=== PATIENT | female | born 1985 | race Caucasian/White ===

== ENCOUNTER 2017-03-19 11:05 | Inpatient (IN) | payer MEDICAID ==
[~2017-03-19] VITALS: Ht 152.4 cm; Wt 57.0 kg
[~2017-03-19 11:05] MED LIST: ACET1TAB40 PO; AZIT250T94 PO; IBUP-1542 PO; IBUP-40; TRAM50TA2 PO
[2017-03-19 12:13] VITALS: BP 99/63; PULSE 93
[2017-03-19] MEDS ORDERED: PRENAT PO (12:14)
[2017-03-19 12:41] LABS: ADD UMIC YES; UR ASCORBIC ACID 40 mg/dL (NEGATIVE); UR BACTERIA FEW /HPF (NONE SEEN); UR BILIRUBIN (Dip) NEGATIVE (NEGATIVE); UR BLOOD (Dip) NEGATIVE (NEGATIVE); UR CLARITY SLIGHTLY CLOUDY (CLEAR); UR COLOR YELLOW (YELLOW); UR GLUCOSE (Dip) NEGATIVE (NEGATIVE); UR KETONES (Dip) TRACE mg/dL (NEGATIVE); UR LEUKOCYTE ESTERASE (Dip) TRACE Leu/ul (NEGATIVE); UR MUCUS FEW /HPF (NONE SEEN); UR NITRITE (Dip) NEGATIVE (NEGATIVE); UR RBC 2 /HPF (0-5); UR SPECIFIC GRAVITY (Dip) 1.018 (1.003-1.030); UR SQUAMOUS EPITHELIAL CELL FEW /HPF (FEW); UR TOTAL PROTEIN (Dip) NEGATIVE (NEGATIVE); UR UROBILINOGEN (Dip) NEGATIVE (NEGATIVE)
--- NOTE | 2017-03-19 12:53 | RADRPT ---
PROCEDURE: OB ultrasound for biophysical profile CLINICAL INDICATION: labor TECHNIQUE: Multiple sonographic images of the pelvis were obtained. Transabdominal view of the gr avid uterus are available for review. The images were reviewed on a PACS workstation. COMPARISON: OB ultrasound 01/12/2017 FINDINGS: breathing movement = 2/2 tone = 2/2 motion = 2/2 RACHEL = 2/2 RACHEL = 18.0 cm Single live intrauterine with cardiac activity. heart rate equals 161 beats p er minute. Presentation is cephalic. The placenta is anterior. IMPRESSION: 1. Single viable intrauterine gestation. 2. Biophysical profile = 8/8. 3. RACHEL = 18.0 cm. RPTAT: KK .Pete Jerez MD, MD Date Time Electronically viewed and signed by .Pete Jerez MD, MD on 03/19/2017 12:53 .B/
[2017-03-19] MEDS ORDERED: TERBUTALINE 1 MG/ML INJ SC ONE ×2 (14:00→16:30)
[2017-03-19] MEDS: LACTATED RINGER'S 1,000 ML IV SCH ×2 (14:28→22:15)
[2017-03-19] MEDS ORDERED: BETAMET NA PHOS/AC(6 MG/ML) 5ML INJ IM ONE (16:30)
--- NOTE | 2017-03-19 16:54 | RADRPT ---
PROCEDURE: CERVICAL LENGTH ULTRASOUND CLINICAL INDICATION: labor at 31 weeks gestational age. TECHNIQUE: Trans-vaginal imaging of the cervical canal was performed utilizing tipton-scale imaging. Sagittal and transverse images were obtained. The images were reviewed on a PACS workstation. COMPARISON: None. FINDINGS: There is no placenta previa. The cervix is closed with a length of 4.1 cm. IMPRESSION: 1. Cervical length is 4.1 cm. RPTAT: QQ .Soham Graham MD, MD Date Time Electronically viewed and signed by .Soham Graham MD, MD on 03/19/2017 16:53 .R/
[2017-03-19 17:45] LABS: BASOPHILS % 0.2 % (0.0-2.0); EOSINOPHILS % 0.3 % (0.0-7.0); HEMATOCRIT 33.1 % (37.0-47.0); HEMOGLOBIN 11.5 g/dl (12.0-16.0); LYMPHOCYTES # 2.4 10^3/ul (0.8-2.9); LYMPHOCYTES % 24.9 % (15.0-51.0); MEAN CORPUSCULAR HGB CONC 34.7 g/dl (32.0-37.0); MEAN CORPUSCULAR VOLUME 92.2 fl (82.0-101.0); MEAN PLATELET VOLUME 9.1 fl (7.4-10.4); MONOCYTE # 0.6 10^3/ul (0.3-0.9); MONOCYTES % 6.3 % (0.0-11.0); NEUTROPHIL # 6.3 10^3/ul (1.6-7.5); NEUTROPHILS % 66.9 % (39.0-77.0); PLATELET COUNT 211 10^3/UL (140-415); RED BLOOD COUNT 3.59 10^6/ul (4.20-5.40); WHITE BLOOD COUNT 9.4 10^3/ul (4.8-10.8)
[2017-03-19 18:07] LABS: ALBUMIN 3.1 g/dl (3.3-4.9); ALBUMIN/GLOBULIN RATIO 0.88; BILIRUBIN,INDIRECT 0.1 mg/dl (0-1.1); BILIRUBIN,TOTAL 0.1 mg/dl (0.2-1.3); CALCIUM 8.6 mg/dl (8.4-10.2); CREATININE 0.47 mg/dl (0.44-1.00); TOTAL PROTEIN 6.6 g/dl (6.1-8.1)
[2017-03-19 18:17] LABS: POTASSIUM 2.8 mmol/L (3.5-5.1)
--- NOTE | 2017-03-19 18:24 | HP ---
Date/Time of Note Date/Time of Note DATE: 03/19/17 TIME: 18:20 OB - History Hx of Present Free Text/Dictation Seen on day of admission in the clinic and noticed to have uterine contractions during abdominal exam and 17 for evaluation. Patient was noticed to have regular uterine contractions frequency of which decreased with subcutaneous terbutaline however patient continued to have uterine contractions Chief Complaint: Patient feels tightening of her abdomen Last Menstrual Period: Aug 20, 2016 Estimated Due Date: May 18, 2017 : 5 Para: 3 Therapeutic : 1 Ultrasounds: Normal mid trimester US Obstetrical Complications: None Medical Complications: None Past Family/Social History * Past Medical, Surgical, Family and Obstetric Histories reviewed from chart. Blood Type: O+ Rubella: immune RPR/VDRL: Negative GBS Status: Unknown HBsAG: Negative OB Admission Exam Vital Signs Vital Signs Vital Signs Date Time Temp Pulse Resp B/P Pulse Ox O2 Delivery O2 Flow Rate FiO2 03/19/17 12:13 98.1 93 99/63 Physical Exam HEENT: WNL Heart: Rhythm Normal Lungs: Clear, Equal Abdomen: WNL Extremities: Normal Reflexes: Normal Cervical Dilatation: None Effacement: 0% Station: -3 Membranes: Intact Heart Rate: 140's Accelerations: Accelerations Present Decelerations: No Decelerations Varibility: Moderate Contractions on Admission: 6-10 Minutes Apart Date/Time Contractions Began: ? Frequency of Contractions: ? Duration: ? Last 72 hours Lab Results CBC & BMP 03/19/17 17:24 Liver Function Test 03/19/17 17:24 Alanine Aminotransferase (ALT/SGPT) 28 Albumin 3.1 L Alkaline Phosphatase 108 Aspartate Amino Transf (AST/SGOT) 21 Direct Bilirubin 0.00 Total Protein 6.6 OB Assessment/Plan Other Assessment: uterine contractions at 31+ weeks Other plan: Will start on p.o. nifedipine3 Cervical length is over 4 cm FREYA JENSEN MD Mar 19, 2017 18:24
[2017-03-19] MEDS ORDERED: LACTATED RINGER'S 1,000 ML IV SCH (18:26)
[2017-03-19] MEDS ORDERED: POTASSIUM CHLORIDE (SR) 20 MEQ TAB PO STA (18:44)
[2017-03-19] MEDS: NIFEdipine 10 MG CAP PO SCH (19:47)
[2017-03-20] MEDS: NIFEdipine 10 MG CAP PO SCH ×4 (01:04→17:16)
[2017-03-20] MEDS: LACTATED RINGER'S 1,000 ML IV SCH ×2 (06:05→13:38)
[2017-03-20 07:35] LABS: ALBUMIN 3.2 g/dl (3.3-4.9); ALBUMIN/GLOBULIN RATIO 0.96; BILIRUBIN,INDIRECT 0.3 mg/dl (0-1.1); BILIRUBIN,TOTAL 0.3 mg/dl (0.2-1.3); CALCIUM 9.1 mg/dl (8.4-10.2); CREATININE 0.42 mg/dl (0.44-1.00); POTASSIUM 3.8 mmol/L (3.5-5.1); TOTAL PROTEIN 6.5 g/dl (6.1-8.1)
--- NOTE | 2017-03-20 13:57 | DS ---
Date/Time of Note Date/Time of Note DATE: 03/20/17 TIME: 13:56 Obstetrical Discharge Record Final Diagnosis Final Diagnosis: not delivered Other Final Diagnosis Persistent uterine contractions and labor Complications Labor Tocolytics: Terbutaline, Other (Nifedipine) Condition on Discharge Physical Assessment Last Vitals: See nurse's note Voiding: Yes Bowel Movement: Yes Breast: Soft, non-tender, Filling Fundus: Other () Abdomen and Incision: Soft bowel sounds positive Abdomen is gravid Episiotomy: Not applicable Calf Tenderness: No Patient Condition: Good FREYA JENSEN MD Mar 20, 2017 13:57
--- NOTE | 2017-03-20 13:58 | QN ---
Documentation Comment Patient has minimal complaint of uterine contractions On electronic monitoring minimal uterine contractions twice or 3 times an hour seen We will discharge home on p.o. nifedipine Placed on bed and pelvic rest until delivery FREYA JENSEN MD Mar 20, 2017 13:58
--- NOTE | 2017-03-20 13:59 | PD.PPDC ---
[employer] ATTENDANT Discharge Instruction Provider Information Physician Information 32-year-old female admitted with uterine contractions not had cessation of uterine contractions using terbutaline and nifedipine Diagnosis Final Diagnosis: Status post contractions Condition Patient Condition: Good Diet Diet: Resume Regular Diet Activity/Restrictions Activity: Bedrest May Shower Restrictions: No Exercising No Lifting Nothing in the Vagina Follow-up Follow-up with Physician: 4, 5, Day/Days (In clinic) Return to clinic for [employer] Instructions: Worsening abdominal pain Excessive Vaginal Bleeding FREYA JENSEN MD Mar 20, 2017 13:59
[2017-03-20] MEDS ORDERED: NIFE10CA19 PO (14:00)
[2017-03-20] MEDS ORDERED: BETAMET NA PHOS/AC(6 MG/ML) 5ML INJ IM ONE (17:00)
[2017-03-23 12:17] LABS: TB-NIL 0.24 IU/mL
== END 2017-03-20 17:45 | disposition home or self-care (01) | DRG 780 ==
LOC: OBT 11:05 → L-D 11:07 → OBG 18:00 → OBT 18:00
PROVIDERS: ADMIT Obstetrics & Gynecology; ATTEND Obstetrics & Gynecology
DX: O47.03 False labor before 37 completed weeks of gestation, third trimester (principal); Z3A.31 31 weeks gestation of pregnancy
CPT/HCPCS: 36415; 76817; 76818; 80053; 81001; 85025; 86480; 96360; 96361; 96372; G0463; J0702; J3105; J7120

== ENCOUNTER → 2017-03-25 | Outpatient (CLI) | payer MEDICAID ==
[~2017-03-25] MED LIST changes: -IBUP-1542 PO; -IBUP-40; +NIFE10CA19 PO; +PRENAT PO; -TRAM50TA2 PO
--- NOTE | 2017-03-25 16:26 | RADRPT ---
PROCEDURE: XR Chest. CLINICAL INDICATION: Positive PPD. TECHNIQUE: Single frontal view. COMPARISON: None. FINDINGS: The lungs are clear. The heart size is normal. There is no pleural effusion. There is no pneumothorax. IMPRESSION: 1. No evidence of active tuberculosis. 2. Normal chest radiograph. RPTAT: QQ .Soham Graham MD, MD Date Time Electronically viewed and signed by .Soham Graham MD, on 03/25/2017 16:23 .R/
== END | disposition home or self-care (01) ==
LOC: RAD 14:38
PROVIDERS: ATTEND Emergency Medicine
DX: R76.11 Nonspecific reaction to tuberculin skin test without active tuberculosis (principal)
CPT/HCPCS: 71010

== ENCOUNTER 2019-04-19 21:57 | Emergency (ER) | payer MEDICAID ==
[~2019-04-19] VITALS: Ht 152.4 cm; Wt 54.2 kg
[~2019-04-19 21:57] MED LIST changes: +ACET325T33 PO; +AMOX500C2 PO; +AZIT250T PO; -AZIT250T94 PO; +CEPH-443 PO; +D-ME473S2 PO; +FLUT9.9S NASAL; +NIFE10CA PO; -NIFE10CA19 PO
[2019-04-19 22:04] VITALS: Ht 152.4 cm; Wt 54.2 kg
[2019-04-20] MEDS ORDERED: ACETAMINOPHEN 325 MG TAB PO ONE
[2019-04-20 02:36] VITALS: BP 112/62; PULSE 15; RESP 16
== END 2019-04-20 02:35 | disposition home or self-care (01) ==
LOC: FTE 21:57
DX: S09.90XA Unspecified injury of head, initial encounter (principal); W22.8XXA Striking against or struck by other objects, initial encounter; Y92.810 Car as the place of occurrence of the external cause
CPT/HCPCS: Z7502; Z7610; 99282